=== PATIENT | male | born 1970 | race African-American/Black ===

== ENCOUNTER 2020-03-17 13:33 | Emergency (ER) | payer OTHER ==
[~2020-03-17] VITALS: Ht 177.8 cm; Wt 77.1 kg
--- NOTE | ~2020-03-17 | EMS ---
[facility] [address] [place] [address] EMS Patient Care Report Name: PATRICK MCCULLOUGH Room #: REG Ashley#: [id number] Admission: 03/17/20 Attend Phys: Discharge: Date of : 70 Report #: [id number] THIS REPORT FOR: //name// Report Transmitted: 03/17/2020 14:39 EMS Care Summary [place], [place]/[facility] Incident [id number] @ 03/17/2020 13:02 Incident Location [address] [place] [address] Patient PATRICK MCCULLOUGH Male, 49 Years 1970 Patient Address HOMELESS Patient History Back Surgery, Patient Allergies Other drug allergy, Patient Medications None Reported, Disposition Transported No Lights/[place] Dispatch Reason Back Pain (Non-Traumatic) Transported To [facility] Narrative THE PATIENT WAS FOUND HANDCUFFED AND SITTING IN THE BACK OF THE POLICE WAN. THE POLICE STATE THE PATIENT WAS SHOPLIFTING AND RAN FROM SECURITY, KICKED A COLORIST FORMULATOR AND THEN WAS ABLE TO WALK HERE TO THE [facility] WITHOUT DIFFICULTY ONCE HE WAS APPREHENDED. THE POLICE STATE THE PATIENT IS NOW COMPLAINING OF BACK PAIN. THE PATIENT IS ALERT AND ORIENTED x4 AND STATES HE WAS KICKED WHILE BEING APPREHENDED AND AGGRAVATED A PREVIOUS BACK INJURY FROM 2000 OR 2001. THE PATIENT DENIES ANY OTHER COMPLAINTS. NO OBVIOUS INJURIES WERE NOTED. THE PATIENT WAS MOVED TO AN ASSESSMENT ROOM IN THE TRIAGE AREA AT THE [facility] ER WHERE [facility] [place] [address] EMS Patient Care Report Name: PATRICK MCCULLOUGH Room #: REG M.R.#: [id number] Admission: 03/17/20 Attend Phys: Discharge: Date of : 70 Report #: [id number] HE SAT ON THE END OF THE BED. CARE WAS TRANSFERRED TO THE ER NURSING STAFF. Initial Vitals @13:19P: 84,R: 14,BP: 110/66,Pain: 10/10,GCS: 15,Revised Trauma: 12, @13:21P: 79,R: 14,BP: 113/73,Pain: 10/10,GCS: 15,Revised Trauma: 12, Assessments @13:14MENTAL:No Abnormalities,SKIN:No Abnormalities,HEENT:Head/Face: No Abnormalities,Eyes: No Abnormalities,Neck/Airway: No Abnormalities,LUNG SOUNDS:General: No Abnormalities,Left Upper: No Abnormalities,Right Upper: No Abnormalities,Left Lower: No Abnormalities,Right Lower: No Abnormalities,ABDOMEN:General: No Abnormalities,Left Upper: No Abnormalities,Right Upper: No Abnormalities,Left Lower: No Abnormalities,Right Lower: No Abnormalities,PELVIS//GI:No Abnormalities,EXTREMITIES:Left Arm: No Abnormalities,Right Arm: No Abnormalities,Left Leg: No Abnormalities,Right Leg: No Abnormalities,PULSE:Radial: 2+ Normal,NEURO:No Abnormalities, Impression Back Pain Procedures @13:14ALS AssessmentResponse: Unchanged Timeline 13:01,Call Received 13:01,Dispatch Notified 13:02,Dispatched 13:03,En Route 13:13,On Scene 13:14,At Patient 13:14,ALS Assessment,Response: Unchanged 13:19,BP: 110/66 M,PULSE: 84,RR: 14 R,SPO2: Ox,ETCO2: ,BG: ,PAIN: 10,GCS: 15, 13:21,BP: 113/73 M,PULSE: 79,RR: 14 R,SPO2: Ox,ETCO2: ,BG: ,PAIN: 10,GCS: 15, 13:22,Depart Scene 13:37,At Destination 13:39,Call Closed Disclaimer [email or web address] Copyright 2020 [employer] This EMS Care Summary contains data elements from the applicable legal record (which may be displayed differently). It is designed to provide pertinent information for the following purposes: continuity of care, clinical quality, and state data reporting. The complete legal record is available to ED staff and administrators of the receiving hospital in [employer]'s Patient Tracker. All data is provided "as is."
[2020-03-17] MEDS ORDERED: MOBIC7.5 MG PO (15:31)
[2020-03-17] MEDS ORDERED: ASPERCREME1 EACH TOP (15:31)
[2020-03-17 15:34] VITALS: BP 101/58
== END 2020-03-17 13:41 | disposition left against medical advice (07) ==
LOC: ER 13:33
DX: M54.5 Low back pain (principal); M54.6 Pain in thoracic spine; Z98.890 Other specified postprocedural states; Y04.2XXA Assault by strike against or bumped into by another person, initial encounter; Y93.89 Activity, other specified; Y92.89 Other specified places as the place of occurrence of the external cause; Y99.8 Other external cause status